=== PATIENT | male | born 2000 | race American Indian/Alaskan Native ===

== ENCOUNTER 2021-05-04 22:42 | Emergency (ER) | payer OTHER ==
[2021-05-04 23:17] VITALS: BP 111/57
--- NOTE | 2021-05-05 10:49 | Electrocardiograph Report ---
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
== END 2021-05-04 23:20 | disposition left against medical advice (07) ==
LOC: ED 22:42
DX: R07.89 Other chest pain (principal); R51.9 Headache, unspecified; M54.2 Cervicalgia; Z53.21 Procedure and treatment not carried out due to patient leaving prior to being seen by health care provider
CPT/HCPCS: 93005